=== PATIENT | female | born 1965 | race Two or more races ===

== ENCOUNTER 2019-08-31 10:58 | Outpatient (CLI) | payer MEDICARE, OTHER | END 2019-08-31 23:59 | disposition home or self-care (01) | LOC: RAD 10:58 | PROVIDERS: ATTEND Legal Medicine | DX: R06.02 Shortness of breath (principal); M47.814 Spondylosis without myelopathy or radiculopathy, thoracic region; R05 Cough | CPT/HCPCS: 71046 ==